=== PATIENT | male | born 2000 | race Caucasian/White ===

== ENCOUNTER → 2021-08-07 | Outpatient (CLI) | payer OTHER, SELFPAY ==
--- NOTE | 2021-08-07 | LES_PTH ---
PATIENT: MARILEE RUGGIERO LOC: [facility] #:[id number] AGE/SX: 21/M ROOM: RE08/07/[address]: Dr. Vladimir Velez MD : 2000 BED: DIS: 08/07/2021 SPEC #: [id number] RECD: 08/07/21 15:59 STATUS: JUWAN ANDRES #: [id number] ROCIO: 08/07/21 00:[address]: Vladimir Velez DEPT: SURGICAL PATHOLOGY RECD BY: Aiden Briseno Tissues: Skin of neck, NOS Procedures: Surgery Specimen Level IV HEADER OPERATION: Intradermal excision PRE-OP DIAGNOSIS: Enlarging lesion left neck; family history skin cancer TISSUE SUBMITTED: Left neck MICROSCOPIC DIAGNOSIS Skin lesion of left neck, shave biopsy: Compound nevus with predominantly intradermal component. See comment. AM:jessica 08/09/2021 COMMENT The lesion extends to the deep portion of the biopsy. Clinical correlation is suggested. MICROSCOPIC DESCRIPTION Slides are reviewed. GROSS DESCRIPTION Received in fixative is one container labeled with the patient's name and designated left neck. The specimen consists of a light banks shave biopsy of skin measuring 0.3 x 0.2 x <0.1 cm. The specimen is totally submitted in one cassette. / AM:jessica 08/08/21 TC:5 [facility]: [id number]
== END | disposition home or self-care (01) ==
LOC: LABSPEC 08-08 07:25
PROVIDERS: Referring Provider Surgery; Visit Provider Surgery
DX: D22.4 Melanocytic nevi of scalp and neck (principal)
CPT/HCPCS: 88305